=== PATIENT | male | born 1975 | race Caucasian/White ===

== ENCOUNTER 2020-09-04 16:28 | Emergency (ER) | payer SELFPAY ==
[2020-09-04 16:50] VITALS: BP 144/88; PULSE 104; RESP 20; TEMP 37.2; O2SAT 98; BMI 24.3
--- NOTE | 2020-09-04 17:09 | HMH.EDUTC ---
[facility] [place]: Encounter for laboratory testing for COVID-19 virus Disposition: Home, Self-Care Condition on Discharge: Good Instructions: Preventing the Spread of Coronavirus Discharge Instructions Additional Instructions: *Monitor Temp, Over the counter Motrin or Tylenol as directed/as needed Tylenol every 4 hours and Motrin every 6 hours (as long as your family doctor has told you that you can take it) for fever or pain. and straight to ER if unable to lower temp less than 101.0 after medication given *Warm salt water gargles may help to soothe the throat *Throat Lozenges *Warm fluids like tea with honey may help to soothe the throat *Sleep elevated *Humidifier/Vaporizer Follow up IMMEDIATELY for new or worsening symptoms or no Noticeable improvement over the next 48-72 hours. 911 for difficulty breathing or swallowing You was tested for today for COVID19 your test result should be back in the next 24-48 hours, you may call to the [facility] tomorrow to see if your test results are back however could take up to 48 hours before results are back [phone] [facility] hours are 9am-9pm You was given a handout with instructions for Self Quarantine and Self isolation for while you wait on test results and what to do if they are positive If you are positive the Health Dept will be contacting you also Referrals: Krystal Retana [Primary Care Provider] - As needed Forms: Work/School Release Time of Disposition: 17:11 Medical Decision Making - Karri Inquiry Pt receiving controlled substance: No Karri was queried for this patient: No Vital Signs: 09/04/20 16:50 Temperature 99.0 F Temperature Source Oral Pulse Rate [Right Brachial] 104 H Respiratory Rate 20 Blood Pressure [Right Arm] 144/88 H Blood Pressure Mean [Right Arm] 106 Blood Pressure Source [Right Arm] Automatic Cuff Blood Pressure Position [Right Arm] Sitting 02 Sat by Pulse Oximetry 98 Oxygen Delivery Method Room Air [facility] [place] - General Stated complaint: Covid testing Time Seen by Provider: 09/04/20 17:09 Mode of Arrival: Ambulatory Source of Information: Patient Limitations: No Limitations Description of Symptoms (Recalled from Triage Doc. by RN): PATIENT REQUESTING COVID TEST; C/O LOSS OF SMELL, CHILLS, AND SWEATS LAST NIGHT HEENT Symptoms (Recalled from RN notes): Yes Resp Symptoms (Recalled from RN notes): No Skin Symptoms (Recalled from RN notes): No MS Symptoms (Recalled from RN notes): No Functional Status (Recalled from RN notes): WNL - History of Present Illness Provider Complaint: Patient states that he come in today to tested for COVID state that for the last couple of days he hasnt been feeling well and thought it was a cold State that last night he was having chills and body aches and loss his sense of taste and smell - Related Data Allergies Allergy/AdvReac Type Severity Reaction Status Date / Time No Known Allergies Allergy Verified 09/04/20 17:07 - Worker's Comp Is this a Worker's Comp case?: No [facility] History - Hepatitis A Screen Drug use history?: No High risk sexual behaviors?: No History of sexually transmitted infection?: No Currently employed?: No Childcare worker?: No Do you have indoor plumbing?: Yes Do you have electricity?: Yes Attestation statement:: This patient has been screened for Hepatitis A risk factors. I have reviewed the patient's past medical history: Yes Laterality Cases: Bilateral: Myringotomy (Ear Tubes), Tonsillectomy - Social History Alcohol Intake: never Occupational Status: other ROS Obtained: Yes All systems reviewed & no additional complaints, Yes Systems reviewed as appropriate & no additional complaints - Constitutional Constitutional: Reports system reviewed and no additional complaints, except as docu, Reports body ache, Reports chills - ENT Ears, Nose, Mouth, and Throat: Reports system reviewed and no additional complaints, except as docu, Reports other
[2020-09-04 17:16] VITALS: BP 144/88; PULSE 104; RESP 20; TEMP 37.2; O2SAT 98
[2020-09-06 09:53] LABS: Covid-19 Nasal PCR Sendout Lex NOT DETECTED
== END 2020-09-04 17:20 | disposition home or self-care (01) ==
PROVIDERS: Emergency Provider Nurse Practitioner; PCP Emergency Medicine
DX: Z20.828 Contact with and (suspected) exposure to other viral communicable diseases (principal)
CPT/HCPCS: 99201; U0004

== ENCOUNTER 2020-11-10 13:52 | Emergency (ER) | payer OTHER, SELFPAY ==
[2020-11-10 14:15] VITALS: BP 139/80; PULSE 96; RESP 21; TEMP 36.9; O2SAT 98; BMI 24.3
--- NOTE | 2020-11-10 14:29 | HMH.EDUTC ---
[facility] [place] Clinical Impression: Exposure to COVID-19 virus Vomiting Qualifiers: Vomiting type: unspecified Vomiting Intractability: non-intractable Nausea presence: with nausea Qualified Code(s): R11.2 - Nausea with vomiting, unspecified Disposition: Home, Self-Care Condition on Discharge: Good Instructions: DI for Vomiting -- Adult Additional Instructions: You have been tested for COVID19. Please isolate yourself as if you are positive until test results are back. Try to stay hydrated with Gatorade, Pedialyte, etc Return to [facility] or ER if symptoms worsen Prescriptions: Promethazine HCl 12.5 mg PO Q6HP PRN 5 Days #20 tab PRN Reason: Vomiting Transmission Status: Pending to [facility] Referrals: Krystal Retana [Primary Care Provider] - Forms: Work/School Release Time of Disposition: 14:37 Medical Decision Making - Karri Inquiry Pt receiving controlled substance: No Orders (Tests/Meds): ORDERS Category Date Time Status Covid-19 Nasal PCR ([facility]) Routine Lab 11/10/20 13:58 Ordered [facility] [place] HPI - General Stated complaint: no taste or smell,chills,vomiting,diarrhea Time Seen by Provider: 11/10/20 14:29 - History of Present Illness Provider Complaint: Patient presents with vomiting, diarrhea, fever, loss of taste and smell X 2 days. Unable to keep anything down. No direct exposures but states multiple people at work are isolated/quarantined and he also works out at the [employer]. Onset (ago): day(s) (2) Location: abdomen Relieving factors: none Exacerbating factors: none Associated symptoms: fever/chills, nausea/vomiting Treatments prior to arrival: none - Related Data Home Medications Medication Instructions Recorded Confirmed Buprenorphine HCl/Naloxone HCl 1 each SL DAILY 11/10/20 11/10/20 [Suboxone 8mg/2mg ODT] Previous Rx's Medication Instructions Recorded Promethazine HCl 12.5 mg PO Q6HP PRN 5 Days #20 tab 11/10/20 [facility] History - Hepatitis A Screen Attestation statement:: This patient has been screened for Hepatitis A risk factors. I have reviewed the patient's past medical history: Yes ROS Obtained: Yes All systems reviewed & no additional complaints - Constitutional Constitutional: Reports body ache, Reports chills, Reports fever(s) - Gastrointestinal Gastrointestingal: Reports: abdominal pain, nausea, vomiting Physical Exam - General General appearance: alert, in no apparent distress - Head Head exam: atraumatic, normocephalic, normal inspection - Eye Eye exam: Present: normal appearance, PERRL, EOMI - ENT ENT exam: Present: normal exam, normal oropharynx, mucous membranes moist, TM's normal bilaterally, normal external ear exam - Neck Neck exam: Present: normal inspection, full ROM, trachea midline. Absent: meningismus, lymphadenopathy - Chest Chest inspection: Present: normal inspection, symmetric chest wall rise. Absent: tenderness - Respiratory Respiratory exam: Present: normal lung sounds bilaterally. Absent: respiratory distress - Cardiovascular Cardiovascular exam: Present: regular rate, normal rhythm. Absent: JVD - Abdominal Exam Abdominal exam: Present: soft, normal bowel sounds. Absent: distention, tenderness, guarding - Extremities Exam Extremities exam: Present: normal inspection, full ROM, normal capillary refill. Absent: calf tenderness - Back Exam Back exam: Present: normal inspection. Absent: tenderness - Neurological Exam Neurological exam: Present: alert, oriented X3 - Psychiatric Psychiatric exam: Present: normal affect, normal mood - Skin Skin exam: Present: warm, dry, intact, normal color - Lymphatic Lymphatic Findings: no adenopathy
[2020-11-10 14:53] VITALS: BP 139/80; PULSE 96; RESP 21; TEMP 36.9; O2SAT 98
== END 2020-11-10 14:55 | disposition home or self-care (01) ==
PROVIDERS: Emergency Provider Physician Assistant; PCP Emergency Medicine
DX: Z20.822 Contact with and (suspected) exposure to COVID-19 (principal); R11.2 Nausea with vomiting, unspecified; R19.7 Diarrhea, unspecified
CPT/HCPCS: 99202; G0463; U0003